=== PATIENT | male | born 1960 | race Caucasian/White ===

== ENCOUNTER 2020-01-12 15:00 | Outpatient (RCR) | payer OTHER, SELFPAY ==
--- NOTE | 2019-12-23 16:16 | PTOPEVAL ---
PHYSICAL THERAPY EVALUATION AND PLAN OF CARE 12-23-2019 The PT evaluation was completed for the diagnosis of back pain, OA. The plan of care is scheduled for 1-2 x/week for 3 weeks. Thank you for referring Ricky Muñoz to [facility]. Please review, sign, date and return this plan of care DEVYN. I agree with and certify that the following plan of care is medically necessary. Referring Physician Date Attending Provider: Jordon Wilkerson MD *PT Outpatient Evaluation Start: 12/23/19 15:10 Document 12/23/19 15:10 CHRIS (Rec: 12/23/19 16:16 CHRIS [id number]) Outpatient Past Medical History Past Medical History Source of Past Medical History Patient Neurological History Hx Neurological Disorders No Significant History Cardiovascular History Hx Cardiac Disorders No Significant History Respiratory History Hx Respiratory Disorders No Significant History Gastrointestinal History Hx Gastrointestinal Disorders No Significant History Genitourinary History Hx Genitourinary Disorders No Significant History Musculoskeletal History Hx Back Pain Yes Hx Joint Replacement Yes: THR R '14/ L '15; Hx Other Musculoskeletal Disorders Yes: active, previous sports, injuries to body:R hamstring injury/torn Hematological History Hx Hematological Disorders No Significant History Endocrine History Hx Endocrine Disorders No Significant History HEENT History Hx HEENT Disorders No Significant History Evaluation Information Problem Diagnosis low back pain, OA Onset few months ago Subjective Information no trauma or injury to back or Query Text:As Reported By Patient/ hips; had R hip injection Family few months ago for bursitis-- decreased pain; Diagnostic Tests X-Rays For This Problem Yes: lumbar OA, partial sacralization of L5 Previous Treatments Previous Treatments For This Problem no previous PT Prior Level of Function Activity Level (Last 3 Months) Occupation wood working; farm work Activity of Daily Living Ability Independent Indoor/Home Mobility Independent Community Mobility Independent Stairs Ability Independent Functional Cognition (Planning, Shopping Independent , Taking Medications) Cooking Yes Cleaning Yes Laundry Yes Shopping Yes Driving Yes Medications Home Meds (Include: OTC, RX, Vitamins, aspirin, naproxen, vitamin, Herbals, Dose, Route,and Frequency) omega 3 fish oil Query Text:Home Med Entries Will No Longer Recall From Past Visits. Home Meds Must Be Re-entered With Each Visit.
--- NOTE | 2019-12-25 10:02 | PCPTNOTE ---
received fax from Dr Wilkerson office--clarify use standard hip precautions for Ricky's therapy ; I called his home and talked with his , informed her of this and to NOT perform supine trunk rot stretch; She voiced understanding and would relay info to him.
--- NOTE | 2020-01-12 15:46 | PTOPEVAL ---
PHYSICAL THERAPY DISCHARGE 01-12-2020 Ricky has received 4 PT sessions, from December 22 to today, for the diagnosis of back pain. Compared to the initial evaluation, he has improved with: decreased pain rating; can transfer sit to stand without pain increase; self assessment with the Oswestry is 0% limitation; flexibility of R and L knee flexion/ant hip-quad length; trunk stability and posture stabilization with activity and he is independent with his home exercises--using an exercise ball and his weight equipment. The goals were achieved, except hamstring flexibility. Thank you for referring Ricky Muñoz to [facility]. Please review, sign, date and return this plan of care DEVYN. I agree with and certify that the following plan of care is medically necessary. Referring Physician Date Attending Provider: Jordon Wilkerson MD Document 01/12/20 15:05 CHRIS (Rec: 01/12/20 15:42 CHRIS [id number]) Assessment Status Discharge Evaluation Information Problem Subjective Information Ricky reports: doing exercises Query Text:As Reported By Patient/ at home, using ball and doing Family core exercises, using wt resisted exercises in standing at home; and ready to be finished with PT treatments; using good mechanics and stretching upright before start walking; self assessment Oswestry is 0% limitation Pain Assessment Timing of Pain Assessment Timing of Pain Assessment Assessment Pain Scale Pain Scale Used Numeric (1 - 10) Self Report Pain Assessment Bilateral Back Reported Pain Level 0 Pain Frequency Chronic Additional Pain Comments tight in R and L lumbar spine; some tightness with sit/stand but not pain Pain Score Pain Score 0: Self Report Lower Extremity Range of Motion General Lower Extremity Range of Motion Gross Lower Extremity Range of Motion supine SLR/hamstring length R Comments 60'/L65' prone knee flexion/ ant hip- quad length; R 120'/L 115'; Lower Extremity Muscle Strength Testing General Lower Extremity Strength Gross Lower Extremity Strength exercises on ball: knee ext, knee ext/arm lift alternate; abd curl ups, roll out, roll out leg lift; prone hip ext, alt arm/leg lift, B rows x 20 each; cues for trunk stability HEP: reviewed HEP, issued above ball exercises for HEP; Posture Posture Standing Position Posture Evaluation View Posterior Additional Posture Comments slight R pelv
== END 2020-01-13 12:19 | disposition home or self-care (01) ==
LOC: ANHPT 15:00
PROVIDERS: Visit Provider Orthopaedic Surgery
DX: M47.819 Spondylosis without myelopathy or radiculopathy, site unspecified (principal); M54.5 Low back pain
CPT/HCPCS: 97110; 97161

== ENCOUNTER 2020-07-13 01:22 | Outpatient (CLI) | payer OTHER, SELFPAY ==
[2020-07-13 19:19] LABS: SARS-CoV-2 RNA PCR Negative
== END 2020-07-13 01:23 | disposition home or self-care (01) ==
LOC: ANHCOVIDDT 01:22
PROVIDERS: Visit Provider Internal Medicine Cardiovascular Disease
DX: Z01.812 Encounter for preprocedural laboratory examination (principal); Z20.822 Contact with and (suspected) exposure to COVID-19
CPT/HCPCS: C9803; U0003; U0005

== ENCOUNTER 2020-07-16 01:40 | Day surgery (SDC) | payer OTHER, SELFPAY ==
[2020-07-15 14:37] VITALS: BMI 35.2
[2020-07-16] VITALS (8 sets, daily range): BP systolic 113–146; BP diastolic 88–107; PULSE 80–103; RESP 12–24; TEMP 36.4–36.6; O2SAT 96–100; BMI 35.6
[2020-07-16 07:44] LABS: Basophils Absolute Auto 0.1 K/mm3 (0.0-0.1); Basophils Percent Auto 0.7 % (0.2-1.2); Eosinophils Absolute Auto 0.2 K/mm3 (0-0.3); Eosinophils Percent Auto 2.9 % (0-4.4); Hematocrit 41.6 % (42.0-52.0); Hemoglobin 13.3 g/dL (14.0-18.0); Immature Granulocyte Absolute 0.02 K/mm3 (0.00-0.031); Immature Granulocyte Percent A 0.3 % (0-0.5); Lymphocytes Absolute Auto 1.31 K/mm3 (0.9-3.2); Lymphocytes Percent Auto 17.9 % (18.3-44.2); Mean Corpuscular Hemoglobin 26.5 pg (26-34); Mean Platelet Volume 9.3 fl (7.4-10.4); Monocytes Absolute Auto 0.5 K/mm3 (0.1-0.6); Monocytes Percent Auto 6.3 % (2.6-8.5); Neutrophils Absolute Auto 5.3 K/mm3 (1.3-6.7); Neutrophils Percent Auto 71.9 % (45.5-73.1); Platelet Count Result 323 k/mm3 (150-375); Red Blood Count 5.01 M/mm3 (4.6-6.20); Red Cell Distribution Width 15.9 % (11.5-14.5); White Blood Count 7.3 K/mm3 (4.5-10.0)
[2020-07-16 07:56] LABS: Anion Gap 5 mmol/L (8-16); Blood Urea Nitrogen 19 mg/dL (9-20); Calcium 8.7 mg/dL (8.4-10.2); Carbon Dioxide 29 mmol/L (22-30); Chloride 109 mmol/L (98-107); Estimated CRCL calculation 87 ml/min; Estimated Glomerular Filt Rate > 60; Glucose 111 mg/dL (75-110); Potassium 3.9 mmol/L (3.4-5.0); Sodium 143 mmol/L (137-145)
[2020-07-16 07:59] LABS: Prothrombin Time 13.2 Seconds (11.1-14.7)
--- NOTE | 2020-07-16 09:06 | WPDHPUPDATE1 ---
History and Physical Update Update Date/Time: 07/16/20 09:06 History and Physical has been reviewed, including an updated exam of the patient. There are NO changes in the patient's condition. Risks, benefits, and alternatives have been discussed and questions answered. Patient agrees to proceed with procedure.
--- NOTE | 2020-07-16 09:06 | WPDMODSED ---
Moderate Sedation Note-Pt Data Patient Data Diagnosis: New diagnosis cardiomyopathy, exertional chest pain shortness of breath Present Complaint: none Procedure to be performed/Plan: left heart catheterization with selective left and right coronary angiography with left ventriculography and hemodynamics Allergies Allergy/AdvReac Type Severity Reaction Status Date / Time No Known Allergies Allergy Unknown Verified 12/11/19 08:01 Home Medications Medication Instructions Recorded Confirmed Type zuyxnzckqklg-nrcqzdxr-dwdios tablet 1 tablet PO DAILY 09/30/19 07/16/20 History naproxen sodium 220 mg capsule 220 mg PO ONCE 09/30/19 07/16/20 History omega-3 fatty acids 500 mg PO DAILY 09/30/19 07/16/20 History lisinopril 10 mg PO DAILY 07/15/20 07/16/20 History Current Medications: Active Medications Sodium Chloride (Normal Saline Iv) 500 mls @ 100 mls/hr IV CONT .Q5H LAYNE Sedation/Anesthesia: No previous sedation/anesthesia problems (including family history). 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[employer] Gender identity (if verbalized by the patient): Male Spiritual care concerns: No Mod Sed Physical Exam Physical Exam Pre Procedural Exam: Normal: Appearance, Eyes, Ears, Nose, Neck ( supple, normal range of motion), Throat ( posterior hypopharynx clear, nonerythematous), Airway ( normal anatomy, no obstruction), Lungs ( clear to auscultation bilaterally), Heart Size, Heart Rate, Heart Rhythm, Neuro Exam, Liver, Kidneys and Skin and Variation: Abdomen ( obese) and Extremities (1+ LE edema bilaterally) Hours since solid foods: 12 Hours since liquid intake: 12 Internal Medicine - PN: Obj Da Vital Signs Vital Signs: Vital Signs - 24 hr 07/16/20 07:37 Temperature 36.6 C Pulse Rate 103 H Respiratory Rate 24 H Blood Pressure 146/90 H Pulse Oximetry 97 Meds/Results Medications: Active Medications Generic Name Dose Route Start Last Admin Trade Name Justinoq PRN Reason Stop Dose Admin Sodium Chloride 500 mls @ 100 mls/hr 07/16/20 07:15 Normal Saline Iv IV CONT .Q5H LAYNE Labs CBC & Chem 7: 07/16/20 07:38 07/16/20 07:38 Labs: Laboratory Results - last 24 hr 07/16/20 07/16/20 07/16/20 07:38 07:38 07:38 WBC 7.3 RBC 5.01 Hgb 13.3 L Hct 41.6 L MCV 83.0 MCH 26.5 MCHC 32.0 RDW 15.9 H Plt Count 323 MPV 9.3 Immature Gran % (Auto) 0.3 Neut % (Auto) 71.9 Lymph % (Auto) 17.9 L Eagle % (Auto) 6.3 Eos % (Auto) 2.9 Baso % (Auto) 0.7 Lymph # (Auto) 1.31 Eagle # (Auto) 0.5 Eos # (Auto) 0.2 Baso # (Auto) 0.1 Abs Immat Gran (auto) 0.02 Absolute Neuts (auto) 5.3 Absolute Nucleated RBC 0.0 Nucleated RBC % 0.0 PT 13.2 INR 1.0 Sodium 143 Potassium 3.9 Chloride 109 H Carbon Dioxide 29 Anion Gap 5 L BUN 19 Creatinine 1.00 Estim Creat Clear Calc 87 Estimated GFR > 60 Glucose 111 H Calcium 8.7 ASA Classification/Sedation ASA Classification/Sedation ASA Class: III Emergent: No Risks: Risks, benefits and alternatives explained and patient/famil
--- NOTE | 2020-07-16 10:27 | PM.PROC ---
Procedure Note - Detailed Date of procedure: 07/16/20 Pre-op diagnosis: SOB,New Left Bundle Branch Block,Cardiomyopathy Post-op diagnosis: same ( Nonischemic cardiomyopathy, nonobstructive CAD) Procedure performed: PROCEDURES PERFORMED: 1. Left heart catheterization 2. Selective left and right coronary angiography 3. Left ventriculography and hemodynamics 4. Moderate/conscious sedation administration 5. Selective right femoral angiography 6. 6 Finnish Angio-Seal vascular closure device deployment in the right common femoral artery Description of procedure: BRIEF HISTORY OF PRESENT ILLNESS: Patient is a pleasant 60-year-old male with a history of hypertension and new recent development of exertional chest discomfort and shortness of breath found have a new left bundle-branch block on EKG. He underwent noninvasive evaluation with a 2D echocardiogram which revealed severe LV dysfunction EF 23% subsequently referred for left heart catheterization for delineation of his coronary anatomy. CATHETERS UTILIZED: Left coronary system- 5 Finnish JL4 catheter Right coronary system- 5 Finnish JR4 catheter Left ventriculography and hemodynamics- 5 Finnish angled pigtail catheter PROCEDURE IN DETAIL: After verbal and written informed consent was obtained the patient, risks, benefits, and alternatives explained in detail the patient agreed to proceed with the plan of care as outlined above. The patient was subsequently brought to the cardiac catheterization lab, placed on the cardiac catheterization table, and prepped and draped in the usual sterile fashion. Utilizing approximately 19cc of 1% subcutaneous Lidocaine, the right groin was then locally anesthetized. Of note, there was difficulty in identifying his femoral pulse post lidocaine administration and obscured landmarks due to his bod habitus. Ultrasound guidance was utilized in locating the femoral artery. Using a long 9cm access needle access obtained and a 23 cm 5Fr access sheath was placed in the right common femoral artery without complications. Through this access, coronary angiography was subsequently obtained in multiple standard re-projections. Following this, a 5 Finnish angled pigtail catheter was advanced retrograde across aortic valve into the cavity of the left ventricle. Left ventriculography was deferred due to high LVEDP and low EF performed, however, hemodynamics were obtained and pullback across aortic valve was subsequently recorded. The vascular access sheath and angiographic catheters were flushed before and after catheter exchanges. At the conclusion of the diagnostic portion of the procedure, all angiographic guidewires and catheters were removed. selective right femoral angiography was performed which revealed the arteriotomy site to be proximal to the bifurcation in the right common femoral artery suitable for 6 Finnish Angio-Seal vascular closure device deployment. Subsequently, over the wire the 5 Finnish arterial vascular access sheath was removed and the 6Fr Angioseal vascular closure device was placed easily and without complication. Excellent hemostasis was achieved and 5 minutes manual compression per protocol was applied. There no complications noted at the conclusion of the diagnostic portion of the study. MODERATE SEDATION/ANESTHESIA ADMINISTRATION: Patient reports no prior problems with sedation/anesthesia. Please see pre-sedation noted for physical examination documentation. Sedation start time was 0909 and end time was 1007 for a total intra-service/procedure face-face time of 58 minutes. A total of 2 mg intravenous Versed and a total of 75 mcg intravenous Fentanyl in multiple divided doses was administered for moderate sedation. Moderate sedation was administered by qualified/certified observer Charlotte Magdaleno RN under my supervision with intra-procedure [id number] observation and management throughout the entirety of the procedure. There were no other issues or compl
--- NOTE | 2020-07-16 13:30 | SUR.PHASEII ---
All D/C instructions reviewed with patient. All questions answered at this time.
== END 2020-07-16 13:46 | disposition home or self-care (01) ==
PROVIDERS: Visit Provider Internal Medicine Cardiovascular Disease
PROC: 4A023N7 Measurement of Cardiac Sampling and Pressure, Left Heart, Percutaneous Approach (ICD-10-PCS; CPT 93452; principal; 2020-07-16 08:30)
DX: I42.8 Other cardiomyopathies (principal); I25.10 Atherosclerotic heart disease of native coronary artery without angina pectoris; I44.7 Left bundle-branch block, unspecified; R06.02 Shortness of breath; I10 Essential (primary) hypertension
CPT/HCPCS: 36415; 80048; 85025; 85610; 93458; C1760; C1887; C1894; C9803; G0269; J1644; J2250; J3010; J7040; U0003; U0005

== ENCOUNTER 2021-03-24 08:49 | Outpatient (CLI) | payer OTHER, SELFPAY ==
[2021-03-24 16:37] LABS: SARS-CoV-2 RNA PCR Negative (Negative)
== END 2021-03-24 08:50 | disposition home or self-care (01) ==
PROVIDERS: PCP Nurse Practitioner Adult Health; Visit Provider Internal Medicine Cardiovascular Disease
DX: Z01.810 Encounter for preprocedural cardiovascular examination (principal); Z20.822 Contact with and (suspected) exposure to COVID-19
CPT/HCPCS: C9803; U0003; U0005

== ENCOUNTER 2022-06-28 09:38 | Emergency (ER) | payer OTHER, SELFPAY ==
[2022-06-28 09:43] VITALS: BP 154/92; PULSE 69; RESP 15; TEMP 36.2; O2SAT 97
--- NOTE | 2022-06-28 11:31 | ED.GENADULT ---
HPI - General Adult General Chief complaint: Back Pain/Injury Stated complaint: back pain Time Seen by Provider: 06/28/22 10:51 Source: patient Mode of arrival: other Limitations: no limitations History of Present Illness HPI narrative: Ricky Muñoz is a 62 y/o male who presents today with reports of being at work and lifted timber in to a truck and felt a pull in his right lower back area. He reports he has pulled his back like this before. Denies any other symptoms with the right lower back pain, reports moving/twisting makes pain worse, he is able to ambulate without difficulty and he is able to sit a certain way and has relief of pain. Related Data Home Medications Medication Instructions Recorded Confirmed tuiqekepgdvr-ecuivxvs-hbhqpx tablet 1 tablet PO DAILY 09/30/19 07/16/20 lisinopril 10 mg tablet 10 mg PO DAILY 07/15/20 07/16/20 Allergies Allergy/AdvReac Type Severity Reaction Status Date / Time No Known Allergies Allergy Unknown Verified 06/28/22 11:02 Review of Systems Review of Systems: CONSTITUTIONAL: Denies fever, chills, or sweats. EYES: Denies visual changes, redness, or discharge. ENT: Denies rhinorrhea, congestion, sore throat, or otalgia. CARDIOVASCULAR: Denies chest pain, palpitations, or edema. RESPIRATORY: Denies cough or dyspnea. GASTROINTESTINAL: Denies abdominal pain, nausea, vomiting, or diarrhea. GENITOURINARY: Denies dysuria or hematuria. SKIN: Denies rash or itching. MUSCULOSKELETAL: Reports right lower back pain that started after lifting a piece of timber NEUROLOGIC: Denies headache, numbness, dizziness, or weakness. PSYCHIATRIC: Denies anxiety or depression. 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 HEAD: Normocephalic, atraumatic. EYES: PERRLA and EOMI. ENT: Nares clear, no rhinorrhea or epistaxis. Mucous membranes moist. Oropharynx without tonsillar hypertrophy exudate or other lesions. NECK: Supple. No adenopathy or masses. No carotid bruits or JVD CHEST: Clear to auscultation. No respiratory distress. No wheezes rales or rhonchi HEART: Regular rate and rhythm. No murmur heard. Normal peripheral pulses. ABDOMEN: Soft, nontender, nondistended, normal active bowel sounds. EXTREMITIES: Normal range of motion. No edema. SKIN: Warm, dry, no rash. NEURO: No focal deficits. Alert and oriented x3. PSYCH: Normal mood and affect. Course Vital Signs Vital signs: Vital Signs Temperature 36.2 C L 06/28/22 09:43 Pulse Rate 69 06/28/22 09:43 Respiratory Rate 15 06/28/22 09:43 Blood Pressure 154/92 H 06/28/22 09:43 Pulse Oximetry 97 06/28/22 09:43 Oxygen Delivery Room Air 06/28/22 09:43 Temperature 36.2 C L 06/28/22 09:43 Pulse Rate 69 06/28/22 09:43 Respiratory Rate 15 06/28/22 09:43 Blood Pressure 154/92 H 06/28/22 09:43 Pulse Oximetry 97 06/28/22 09:43 Oxygen Delivery Room Air 06/28/22 09:43 Medical Decision Making MDM Narrative Medical decision making narrative: Vijay
[2022-06-28] MEDS: ORPHENADRINE CITRATE 100 MG TABLET.ER PO (11:47)
[2022-06-28] MEDS: NAPROXEN 500 MG TABLET PO (11:47)
== END 2022-06-28 12:05 | disposition home or self-care (01) ==
PROVIDERS: Emergency Provider Nurse Practitioner Family
DX: S39.012A Strain of muscle, fascia and tendon of lower back, initial encounter (principal); I10 Essential (primary) hypertension; X50.0XXA Overexertion from strenuous movement or load, initial encounter
CPT/HCPCS: 99283; A9270

== ENCOUNTER 2024-01-23 14:56 | Outpatient (CLI) | payer OTHER, SELFPAY ==
--- NOTE | ~2024-01-23 | US_ITS ---
US scrotum doppler INDICATION: Testicular enlargement TECHNIQUE: Testicular sonogram utilizing grayscale and color Doppler FINDINGS: The testes are normal in size and appearance. No focal lesions are seen. The right testes measures 4.6 x 2.9 x 2.5 cm centimeters, and the left testis measures 3.8 x 3.6 x 2.8 cm cm. There is normal vascular flow to both testes. There are multiple bilateral epididymal cysts, largest on the left measuring 4.5 cm. There is a right hydrocele. IMPRESSION: 1. Large bilateral epididymal cysts, largest on the left measuring 4.5 cm. 2: Right varicocele. Reviewed, dictated and finalized at location B.
== END 2024-01-23 14:57 ==
PROVIDERS: Visit Provider Family Medicine
DX: N50.3 Cyst of epididymis (principal); I86.1 Scrotal varices; N50.89 Other specified disorders of the male genital organs
CPT/HCPCS: 76870; 93976

== ENCOUNTER 2024-11-25 02:00 | Day surgery (SDC) | payer OTHER, SELFPAY ==
[2024-11-19 12:14] VITALS: BMI 30.2
--- OUTSIDE RECORDS SUMMARY | 2024-11-25 02:03 | XMS_ITS | Referral Summary ---
Author Organization [facility] [address] [place] [address] [address] [place] [address] Care Team Providers Care Bdr Name Role Phone Jenny Murphy NP Primary Care Provider [phone] Encounters Date Type Department Care Team Description 11/19/2024 Telephone [facility] [address] [place] [address] [address] [place] [phone] Jay Brar MD 10/28/2024 12:45 PM CDT Ancillary Procedure [facility] [address] [facility] [address] [address] Biventricular ICD (implantable cardioverter-defibrilla tor) in place (Primary Dx); NICM (nonischemic cardiomyopathy) (HCC) 10/26/2024 Results Follow-Up [facility] [address] [place] [address] [address] [place] [phone] Jay Brar MD Abdominal Aortic Aneurysm Screening 10/22/2024 3:53 PM CDT - 10/22/2024 11:59 PM CDT Hospital Encounter [facility] [address] [place] [address] Family history of aortic aneurysm Discharge Disposition: Discharge to home or self care 09/30/2024 Telephone [facility] [address] [place] [address] [address] [place] [address] Jay Brar MD 09/30/2024 3:15 PM CDT Office Visit [facility] [address] [place] [address] Jay Brar MD Coronary artery disease involving [place] coronary artery of [place] heart without angina pectoris (Primary Dx); Heart failure with improved ejection fraction (HFimpEF) (HCC); LBBB (left bundle branch block); Biventricular ICD (implantable cardioverter-defibrilla tor) in place; Benign hypertension; Mixed hyperlipidemia; PSVT (paroxysmal supraventricular tachycardia); Family history of aortic aneurysm from Last 3 Months Allergies No known active allergies Medications multivitamin tablet tablet take 1 tablet by oral route every day with food 0 0 6 Active aspirin 81 mg enteric coated tablet Take 1 tablet (81 mg total) by mouth daily Active sacubitriL-vals jennifer (Entresto) 97-103 mg tablet Take 1 tablet by mouth 2 (two) times a day 180 tablet 3 5 Active atorvastatin (LIPITOR) 40 mg tablet Take 1 tablet (40 mg total) by mouth daily 90 tablet 1 5 Active metoprolol XL (TOPROL-XL) 50 mg extended release tablet Take 1.5 tablets (75 mg total) by mouth daily 135 tablet 1 5 05/18/20 25 Active atorvastatin (LIPITOR) 40 mg tablet Take 1 tablet (40 mg total) by mouth daily 90 tablet 5 11/20/19 25 Discontinu ed(Reorder ) metoprolol XL (TOPROL-XL) 50 mg extended release tablet Take 1.5 tablets (75 mg total) by mouth daily 135 tablet 5 11/20/19 25 Discontinu ed(Reorder ) Active Problems Problem Noted Date Diagnosed Date Encounter for medical examination to establish c are 06/17/2024 Assessment & Plan (06/17/2024 4:00 PM ALUMNI COORDINATOR): I have reviewed patient's history, family history, current med list and plan of care. Discussed relevant follow up testing and specialty follow-up needed. Referrals placed as needed. Referral placed for colonoscopy. PSVT (paroxysmal supraventricular tachycardia) 1 Assessment & Plan (06/17/2024 3:58 PM ALUMNI COORDINATOR): This was found on device interrogation. It was recommended that he increase the metoprolol to 75 mg daily. He states he has not started the new dose yet as he is not having any symptoms. He continues to exercise regularly and states he feels well. H/O cardiomyopathy 07/10/2022 Mixed hyperlipidemia 07/10/2022 Assessment & Plan (06/17/2024 3:59 PM ALUMNI COORDINATOR): Last LDL was 55. Continues on atorvastatin 40 mg once daily. Has been managed by Cardiology Biventricular ICD (implantab le cardioverter-defibrillator) in place 06/29/2021 Chronic heart failure with p reserved ejection fraction (CMS/HCC) 12/08/2020 Coronary artery disease invo lving [place] coronary artery of [place] heart without angina pectoris 07/30/2020 LBBB (left bundle branch block) 07/08/2020 Heart failure with improved ejection fraction (H FimpEF) 11/18/2019 Assessment & Plan (06/17/2024 3:57 PM ALUMNI COORDINATOR): Patient has implantable defibrillator. He continues to follow with Cardiology. Class 1 obesity due to exces s calories with serious comorbidity and body mass index (BMI) of 32.0 to 32.9 in adult 05/02/2016 Overview (09/15/2016): Obesity (BMI 30-39.9) Assessment & Plan (06/17/2024 3:56 PM ALUMNI COORDINATOR): BMI Follow-up includes: nutrition counseling. Family history of aortic aneurysm 05/02/2016 Overview (09/15/2016): Family history of abdominal aortic aneurysm (AAA) Benign hypertension 05/02/2016 Overview (09/15/2016): HTN (hypertension), benign Assessment & Plan (06/17/2024 3:57 PM ALUMNI COORDINATOR): Blood pressure well controlled on current medications. This include furosemide metoprolol and Entresto which are prescribed per Cardiology. Labs reviewed from last January and are stable. Resolved Problems Problem Noted Date Diagnosed Date Resolved Date Stage 2 chronic kidney disease 01/11/2024 06/17/2024 Dilated cardiomyopathy 07/30/202006/17 Assessment & Plan (12/08/2020 11:27 AM CDT): Severe nonischemic cardiomyopathy with associated new York Heart Association class 2 symptoms. LV ejection fraction was 23-25% on his last echocardiogram. He has a left bundle branch block on his resting ECG. I recommended that he consider placement of a defibrillator for the primary prevention of sudden cardiac arrest. Because of his IVCD, he would likely benefit from biventricular pacing, and I described concurrent placement of an LV pacing lead. I explained the risks of device placement, including device infection, hematoma, vascular injury, pneumothorax, myocardial perforation, lead dislodgement, and . I estimated the risks of these to be low. We also discussed the specific benefits of device placement. If the patient would like to proceed, my office will make the appropriate arrangements. From: Adonis Velazquez AE, JP, Ellenbogen KA, Pedro Luis OCONNOR III, Jaz Yates RA, Mahesh SILVER, Get Tavarez, Viviana GREGORY, Placido GALVEZ, Nnamdi JIMENES, Jose Cruz HANEY, Celeste JAIN, Rosy ECHOLS, Marcelo GANDARA, Mundo MEDEL, Amauri BERMAN. ACC/AHA/HRS 2008 guidelines for device-based therapy of cardiac rhythm abnormalities: a report of the [place] College of Cardiology/Lao Heart Association Task Force on Practice Guidelines (Writing Committee to Revise the ACC/AHA/NASPE 2002 Guideline Update for Implantation of Cardiac Pacemakers and Antiarrhythmia Devices). J Am Abrahan Cardiol 2008;51:e1- 62. Class I: ICD therapy is indicated in patients with nonischemic DCM who have an LVEF less than or equal to 35% and who are in NYHA functional Class II or III. (Level of Evidence: B) From: Adonis Velazquez AE, JP, Ellenbogen KA, Estes NAM III, Jaz Yates RA, Mahesh SILVER, Get Tavarez, Viviana GREGORY, Placido GALVEZ, Nnamdi JIMENES, Jose Cruz HANEY, Celeste RL, Rosy ECHOLS, Marcelo GANDARA, Mundo MEDELAmauri 2012 ACCF/AHA/HRS focused update incorporated into the ACCF/AHA/HRS 2008 guidelines for device-based therapy of cardiac rhythm abnormalities: a report of the [place] College of Cardiology Foundation/La[place] Heart Association Task Force on Practice Guidelines and the Heart Rhythm Society. J Am Abrahan Cardiol 2013;61:e6-75. Class I: SEAMLESS TUBE MILL OPERATOR is indicated for patients who have LVEF less than or equal to 35%, sinus rhythm, LBBB with a QRS duration greater than or equal to 150 ms, and NYHA class II, (546,547) III, or ambulatory IV (542-545); symptoms on GDMT. (Level of Evidence: A for NYHA class III/IV; Level of Evidence: B for NYHA class II) Exertional chest pain 07/08/20202024 HAWKINS (dyspnea on exertion) 07/08/2020 PVC's (premature ventricular contractions) 07/08/2020 06/17/2024 Abnormal electrocardiography 05/02/2016 06/17/2024 Overview (09/15/2016): Abnormal ECG Preoperative state 05/02/2016 Overview (09/15/2016): Preoperative cardiovascular examination Arthralgia of hip 05/02/2016 06/17/2024 Overview (09/15/2016): Hip pain, bilateral Immunizations Immunization Administration Dates Next Due Influenza, Quadrivalent, Spl it, Preservative Free, Intramuscular 08/19/2016 [facility] SARS-CoV-2 Monovalent Vaccination (12+ Yrs) PURPLE 11/27/2020,11/06/2020 Social History Tobacco Use Types Packs/Day Years Used Date Smoking Tobacco: Never Smokeless Tobacco: Never Tobacco Cessation:Counseling Given: Not Answered Alcohol Use Standard Drinks/Week Comments No 0 (1 standard drink = 0.6 oz pur e alcohol) AUDIT-C Answer Date Recorded Q1: How often do you have a drink containing alc ohol? 2-4 times a month 03/28/2021 Q2: How many drinks containi ng alcohol do you have on a typical day when you are drinking? 1 or 2 03/28/2021 Q3: How often do you have si x or more drinks on one occasion? Never 03/28/2021 PHQ-2 Answer Date Recorded PHQ-2 Total Score (If total score is 3 or more points, staff should administer the PHQ-9) 0 06/17/2024 Sex and Gender Information Value Date Recorded Sex Assigned at Not on file Legal Sex Male 4:18 AM ALUMNI COORDINATOR Gender Identity Male 10/18/2020 4:43 PM CDT Sexual Orientation Straight 10/18/2020 4: 43 PM CDT Last Filed Vital Signs Vital Sign Reading Time Taken Comments Blood Pressure 104/60 09/30/2024 4:02 PM CDT Pulse 72 09/30/2024 4:02 PM CDT Temperature 36.9 C (98.5 F) 06/17/2024 3:23 PM ALUMNI COORDINATOR Respiratory Rate 18 06/17/2024 3:23 PM ALUMNI COORDINATOR Oxygen Saturation 97% 09/30/2024 4:02 PM CDT Inhaled Oxygen Concentration - - Weight 100.7 kg (222 lb) 09/30/2024 4:02 PM CDT Height 177.8 cm (5' 10) 09/30/2024 4:02 PM CDT Body Mass Index 31.85 09/30/2024 4:02 PM CDT Plan of Treatment Not on file Medical Devices Implanted Type Area Convention Worker Device Identifier Shelf Expiration Date Model / Serial / Lot Medtronic Inc [id number] Cardiac [place] Hf 2 Chamber Df4 Inline Cnctr Is4 - [id number] - [id number] Implanted:Qty: 1 on 03/28/2021 by Fareed Downs MD at [facility] ICD Medtronic Inc [id number] 07/25/2022 DTP [id number] / [id number] / [id number] Medtronic Cardiac Rhythm Mgmt [id number] Sprint Quattro Secure S 55cm Df-4 Tripolar Screw Defibrillator - [id number] - [id number] Implanted:Qty: 1 on 03/28/2021 by Fareed Downs MD at [facility] Lead Medtronic Inc [id number] 01/13/2023 [id number] / [id number] / [id number] Medtronic Inc [id number] Lead Attain Stability Quad Mri Surescan Lv 88mm - [id number] - [id number] Implanted:Qty: 1 on 03/28/2021 by Fareed Downs MD at [facility] Lead Medtronic Inc [id number] 12/08/2022 [id number] / [id number] / [id number] Medtronic Inc Capsurefix Novus 6.2fr 2mm 52cm Bipolar Screw In Implantable Latex Free 5076-52 - [id number] - [id number] Implanted:Qty: 1 on 10/24/2021 at [facility] Lead Medtronic Inc [id number] 08/11/2023 507 6-52 / [id number] / [id number] Bilateral Hip Replacements Hip Explanted Type Area Convention Worker Device Identifier Shelf Expiration Date Model / Serial / Lot Medtronic Cardiac Rhythm Mgmt 5076-45 Capsurefix Novus 6.2fr 2mm 45cm Bipolar Screw In Implantable - [id number] - [id number] Implanted:Qty: 1 on 03/28/2021 by Fareed Downs MD at [facility] Explanted:Qty: 1 on 10/24/2021 at [facility] Lead Medtronic Inc [id number] 01/20/2023 507 6-45 / [id number] / [id number] Procedures Procedure Name Priority Date/Time Associated Diagnosis Comments DEVICE CHECK - REMOTE Routine 10/28/2024 9:34 AM CDT NICM (nonischemic cardiomyopathy) (HCC) US ABDOMINAL AORTIC ANEURYSM SCREENING Schedule Routine, Read Routine (OP Routine) 10/22/2024 4:37 PM CDT Family history of aortic aneurysm POCT LIPID PANEL Routine 09/30/2024 4:03 PM CDT Coronary artery disease involving [place] coronary artery of [place] heart without angina pectoris Mixed hyperlipidemia from Last 3 Months Results * DEVICE CHECK - REMOTE (10/28/2024 9:34 AM CDT) Anatomical Region Laterality Modality Other Narrative 11/09/2024 12:12 PM CDT Table formatting from the original result was not included. BiV ICD CHECK (REMOTE) Patient ID: Ricky Muñoz is a 64 y.o. male. This patient received a Medtronic BiV ICD. They had a routine remote transmission on 10/28/2024 Device implant indications: Nonischemic dilated cardiomyopathy Interrogation of the patient's device demonstrates the following: Presenting EGM: A paced Bi V paced @ 60 bpm Original Device Settings Right Atrium Right Ventricle Left Ventricle Sensitivity (mV) 0.3 mV 0.3 mV N/A mV Pacing Outputs 1.5 V @ 0.4 ms 2.0 V @ 0.4 ms 1.5 V @ 0.4 ms Testing Measurements Right Atrium Right Ventricle Left Ventricle Sensitivity (mV) 3.1 mV 11.3 mV Not done mV Impedence (Ohms) 323 ohms 361 ohms 513 ohms Pace Threshold 0.5 V @ 0.4 ms 0.75 V @ 0.4 ms 0.875 V @ 0.4 ms Pacing % 39.5 % 97.5 % 97.5 % HV Lead Impedance N/A 71 ohms N/A Battery Status: 7.5 years to [facility], charge time 10.5 seconds. Episodes last 90 days/Comments: AF [place] 0 %,longest duration 0. There were 4 episodes of SVT the longest lasting 3-1/2 minutes rates ranged from 167 per to 200 beats per minute. There were no treated ventricular arrhythmias noted on today's remote interrogation. NORMAL DEVICE FUNCTION PROGRAMMED MEDICATIONS: Anti-coagulant(s): Aspirin 81 mg daily Anti-arrhythmic(s): Toprol-XL 75 mg daily PLAN: 1) Medtronic BiV ICD evaluation 2) Medtronic remote transmission scheduled in 3 months. 3) Programming appropriate for device settings Arron Reed RN us Fareed Downs MD [facility] PRO CEDURES Final Result * US Abdominal Aortic Aneurysm Screening (10/22/2024 4:37 PM CDT) Anatomical Region Laterality Modality Abdomen Ultrasound 10/25/2024 7:21 AM CDT Narrative 10/25/2024 7:21 AM CDT EXAM DESCRIPTION: US ABDOMINAL AORTIC ANEURYSM SCREENING REASON FOR STUDY: family history of aortic aneurysm TECHNIQUE: Grayscale images acquired of the aorta and stored on PACS. Selected color Doppler and spectral images recorded. COMPARISON: None. FINDINGS: AORTIC CALIBER MAXIMAL PROXIMAL: 2.9 x 2.7 cm. MID: 2.5 x 2.4 cm. DISTAL: 2.1 x 2.0 cm. ILIAC DIAMETER RIGHT: 1.3 x 1.5 cm. LEFT: 1.5 x 1.4 cm. OTHER: No other significant finding. IMPRESSION: No abdominal aortic aneurysm. REFERENCE: Please see below follow up recommendations for abdominal aortic aneurysm surveillance per Society for Vascular Surgery Guidelines: < 2.6 cm No follow up or future screenings necessary 2.62.9 cm Recommended ultrasound follow up every 5 years 3.0-3.4 cm Recommended ultrasound follow up every 3 years 3.5-3.9 cm Recommended ultrasound follow up every 12 months 4.0-4.9 cm Recommended ultrasound follow up every 12 months, vascular surgery consult 5.0-5.4 cm Recommended ultrasound follow up every 6 months, vascular surgery consult >= 5.5 cm Referral to vascular surgeon Based upon Society for Vascular Surgery Guidelines: J Vasc Surgery 2008 50: s2-s49; updated Jun 2017 J Vasc Surgery 67:2-77 THIS IS AN ELECTRONICALLY VERIFIED FINAL REPORT 10/25/2024 7:21 AM - Electronically signed by Colton Gonzalez M.D. CH: Report ID: [id number] Reading Location: [id number] Procedure Note Colton Gonzalez Jr., MD - 10/25/2024 EXAM DESCRIPTION: US ABDOMINAL AORTIC ANEURYSM SCREENING REASON FOR STUDY: family history of aortic aneurysm TECHNIQUE: Grayscale images acquired of the aorta and stored on PACS.Selected color Doppler and spectral images recorded. COMPARISON: None. FINDINGS: AORTIC CALIBER MAXIMAL PROXIMAL: 2.9 x 2.7 cm. MID: 2.5 x 2.4 cm. DISTAL: 2.1 x 2.0 cm. ILIAC DIAMETER RIGHT: 1.3 x 1.5 cm. LEFT: 1.5 x 1.4 cm. OTHER: No other significant finding. IMPRESSION: No abdominal aortic aneurysm. REFERENCE: Please see below follow up recommendations for abdominal aortic aneurysm surveillance per Society for Vascular Surgery Guidelines: < 2.6 cm No follow up or future screenings necessary 2.62.9 cm Recommended ultrasound follow up every 5 years 3.0-3.4 cm Recommended ultrasound follow up every 3 years 3.5-3.9 cm Recommended ultrasound follow up every 12 months 4.0-4.9 cm Recommended ultrasound follow up every 12 months, vascularsurgery consult 5.0-5.4 cm Recommended ultrasound follow up every 6 months, vascularsurgery consult >= 5.5 cm Referral to vascular surgeon Based upon Society for Vascular Surgery Guidelines: J Vasc Surgery 2009Oct 50: s2-s49; updated Jun 2017 J Vasc Surgery 67:2-77 THIS IS AN ELECTRONICALLY VERIFIED FINAL REPORT 10/25/2024 7:21 AM - Electronically signed by Colton Gonzalez M.D. CH: LUCIA Report ID: [id number] Reading Location: [place] [address] Jay Brar MD IMG US PROCEDURES Final R esult * POCT lipid panel (09/30/2024 4:03 PM CDT) Cholesterol, POC 143 mg/dL HDL, POC 69 mg/dL Triglycerides, POC 91 mg/dL LDL Cholesterol POC 56 mg/dL Chol/HDL Ratio, POC 0.8 Non-HDL Cholesterol, POC 74 mg/dL Cholesterol Total, POC 143 mg/dL Capillary blood 09/30/2024 4 :03 PM CDT Jay Brar MD POINT OF CARE TEST ORDERA BLES Final Result from Last 3 Months Insurance [facility] Care Teams Bdr Relationship Specialty Start Date End Date Jenny Murphy NP [address] [place] [address] PCP - General Family Medicine 06/17/24
--- OUTSIDE RECORDS SUMMARY | 2024-11-25 02:03 | XMS_ITS | Encounter Summary ---
Author Organization [facility] Healthcare Address [address] [place] [address] Care Team Providers Care Seal Mixer Name Role Phone Jenny Murphy NP Primary Care Provider [phone] Encounter Details Date Type Department Care Team (Late st Contact Info) Description 10/26/2024 Results Follow-Up [facility] Cardiology [address] [place] [address] Jay Brar MD [address] [facility] [address] [facility] [address] [place] [address] Abdominal Aortic Aneurysm Screening Social History Tobacco Use Types Packs/Day Years Used Date Smoking Tobacco: Never Smokeless Tobacco: Never Alcohol Use Standard Drinks/Week Comments No 0 [...] on file 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
--- OUTSIDE RECORDS SUMMARY | 2024-11-25 02:03 | XMS_ITS | Clinical Summary ---
Author Organization [facility] [address] Address [address] [place] [address] Care Team Providers Care Pest Controller Assistant Name Role Phone Jenny Murphy NP Primary Care Provider [phone] Allergies No known active allergies Medications multivitamin [...] 06/17/2024 Assessment & Plan (06/17/2024 4:00 PM ETHICS INSTRUCTOR): I have reviewed patient's history, family history, current med list and plan of care. Discussed relevant follow up testing and specialty follow-up needed. Referrals placed as needed. Referral placed for colonoscopy. PSVT (paroxysmal supraventricular tachycardia) 1 Assessment & Plan (06/17/2024 3:58 PM ETHICS INSTRUCTOR): This was found on device interrogation. It was recommended that he increase the metoprolol to 75 mg daily. He states he has not started the new dose yet as he is not having any symptoms. He continues to exercise regularly and states he feels well. H/O cardiomyopathy 07/10/2022 Mixed hyperlipidemia 07/10/2022 Assessment & Plan (06/17/2024 3:59 PM ETHICS INSTRUCTOR): Last LDL was 55. Continues on atorvastatin 40 mg once daily. Has been managed by Cardiology Biventricular ICD (implantab le cardioverter-defibrillator) in place 06/29/2021 Chronic heart failure with p reserved ejection fraction (CMS/HCC) 12/08/2020 Coronary artery disease invo lving peoria coronary artery of peoria heart without angina pectoris 07/30/2020 LBBB (left bundle branch block) 07/08/2020 Heart failure with improved ejection fraction (H FimpEF) 11/18/2019 Assessment & Plan (06/17/2024 3:57 PM ETHICS INSTRUCTOR): Patient has implantable defibrillator. He continues to follow with Cardiology. Class 1 obesity due to exces s calories with serious comorbidity and body mass index (BMI) of 32.0 to 32.9 in adult 05/02/2016 Overview (09/15/2016): Obesity (BMI 30-39.9) Assessment & Plan (06/17/2024 3:56 PM ETHICS INSTRUCTOR): BMI Follow-up includes: nutrition counseling. Family history of aortic aneurysm 05/02/2016 Overview (09/15/2016): Family history of abdominal aortic aneurysm (AAA) Benign hypertension 05/02/2016 Overview (09/15/2016): HTN (hypertension), benign Assessment & Plan (06/17/2024 3:57 PM ETHICS INSTRUCTOR): Blood pressure well controlled on current medications. [...] office will make the appropriate arrangements. From: Caroline AE, Adonis BOBBY, Herrera KA, Pedro Luis OCONNOR III, Trudy RA, Jaz LS, Mahesh AM, Get G, Viviana SC, Placido DL, Nnamdi JIMENES, Jose Cruz LK, Celeste RL, Rosy MH, Marcelo MJ, Mundo LW, Amauri BERMAN. ACC/AHA/HRS 2008 guidelines for device-based therapy of cardiac rhythm abnormalities: a report of the [place] College [employer]/[place] Heart Association Task Force on Practice Guidelines [...] or III. (Level of Evidence: B) From: Caroline AE, Adonis BOBBY, Herrera KA, Pedro Luis OCONNOR III, Trudy RA, Jaz LS, Mahesh AM, Get G, Viviana SC, Placido DL, Nnamdi MA, Jose Cruz LK, Celeste RL, Rosy MH, Marcelo MJ, Mundo LW, Amauri BERMAN 2011 ACCF/AHA/HRS focused update incorporated into the ACCF/AHA/HRS 2008 guidelines for device-based therapy of cardiac rhythm abnormalities: a report of the [place] [employer] Foundation/[place] [employer] Association Task Force on Practice Guidelines and the Heart Rhythm Society. J Am Abrahan Cardiol 2013;61:e6-75. Class I: MULTIPLE DRILL OPERATOR is indicated for patients who have [...] 05/02/2016 06/17/2024 Overview (09/15/2016): Hip pain, bilateral Encounters Date Type Department Care Team Description 11/19/2024 Telephone [facility] [address] [place] [address] Jay Brar MD 10/28/2024 12:45 PM CDT Ancillary Procedure [facility] [address], [place] [address] Biventricular ICD (implantable cardioverter-defibrilla tor) in place (Primary Dx); NICM (nonischemic cardiomyopathy) ([facility]) 10/26/2024 Results Follow-Up [facility] [address] [place] [address] Jay Brar MD US Abdominal Aortic Aneurysm Screening 10/22/2024 3:53 PM CDT - 10/22/2024 11:59 PM CDT Hospital Encounter [facility] [address] [place] [address] Family history of aortic aneurysm Discharge Disposition: Discharge to home or self care 09/30/2024 3:15 PM CDT Office Visit [facility] [address] [place] [address] Jay Brar MD Coronary artery disease involving peoria coronary artery of peoria heart without angina pectoris (Primary Dx); Heart failure with improved ejection fraction (HFimpEF) ([facility]); LBBB (left bundle branch block); Biventricular ICD (implantable cardioverter-defibrilla tor) in place; Benign hypertension; Mixed hyperlipidemia; PSVT (paroxysmal supraventricular tachycardia); Family history of aortic aneurysm 09/30/2024 Telephone [facility] [address] [place] [address] Jay Brar MD from Last 3 Months Immunizations Immunization Administration Dates Next Due Influenza, Quadrivalent, Spl it, Preservative Free, Intramuscular 08/19/2016 Pfizer SARS-CoV-2 Monovalent Vaccination (12+ Yrs) PURPLE 11/27/2020,11/06/2020 Surgical History Surgery Date Site/Laterality Comments HIP SURGERY JOINT REPLACEMENT Both hips total replacement CARDIAC DEFIBRILLATOR PLACEMENT 06/11/2021 - 06/10/2022 Medical History Medical History Date Comments History of calculus of gallbladder History of cholelithiasis Hypertension Hypertension Over weight Heart disease Heart Failure Dilated cardiomyopathy (HCC) 07/30/2020 Family History Medical History Relation Name Comments Heart attack Brother 2 Amando Muñoz Abdominal Aortic Aneurysm Father Ab dominal aortic aneurysm; Cause of : Abdominal aortic aneurysm Dementia Mother Other Sister 2 Alive and well; Relation Name Status Comments Brother 1 Alive Brother 2 Amando Muñoz Father (Age 90) Mother Alive Sister 1 Alive Sister 2 Social History Tobacco Use Types Packs/Day Years [...] on file Legal Sex Male 4:18 AM ETHICS INSTRUCTOR Gender Identity Male 10/18/2020 4:43 PM CDT Sexual Orientation Straight 10/18/2020 4: 43 PM CDT Obstetrics History Last Filed Vital Signs Vital Sign Reading Time Taken Comments Blood Pressure 104/60 09/30/2024 4:02 PM CDT Pulse 72 09/30/2024 4:02 PM CDT Temperature 36.9 C (98.5 F) 06/17/2024 3:23 PM ETHICS INSTRUCTOR Respiratory Rate 18 06/17/2024 3:23 PM ETHICS INSTRUCTOR Oxygen Saturation 97% 09/30/2024 4:02 PM CDT Inhaled Oxygen Concentration - - Weight 100.7 kg (222 lb) 09/30/2024 4:02 PM CDT Height 177.8 cm (5' 10) 09/30/2024 4:02 PM CDT Body Mass Index 31.85 09/30/2024 4:02 PM CDT Plan of Treatment Health Maintenance Due Date Last Done Comments Colon Cancer Screening-Colonoscopy 1960 Hepatitis C Screening 1960 DTaP/Tdap/Td Vaccine (1 - Tdap) 1971 Hepatitis B Screening 1978 Regular Well Visit/Exam 18-64 1978 Pneumococcal vaccine <65 (1 of 2 - PCV) 1979 Zoster Vaccine (1 of 2) 2010 Covid-19 Vaccine ( season) 2024, 11/06/2020 Influenza Vaccine (Season Ended) 2025 08/20/19 17 Depression Screening 06/17/2025 06/17/2024 Prostate Cancer Screening-PSA 01/09/2026 01/10/2024 Medical Devices Implanted Type [employer] Teacher Device Identifier Shelf Expiration Date Model / Serial / Lot Medtronic Inc [id number] Cardiac [place] Hf 2 Chamber Df4 Inline Cnctr Is4 - [id number] - [id number] Implanted:Qty: 1 on 03/28/2021 by Fareed Downs MD at [facility] ICD Med[employer] Inc [id number] 07/25/2022 DTP [id number] / [id number] / [id number] Medtronic Cardiac Rhythm Mgmt [id number] Sprint Quattro Secure S 55cm Df-4 Tripolar Screw Defibrillator - [id number] - [id number] Implanted:Qty: 1 on 03/28/2021 by Fareed Downs MD at [facility] Lead Med[employer]onic Inc [id number] 01/13/2023 [id number] / [id number] / [id number] Medtronic Inc [id number] Lead Attain Stability Quad Mri Surescan Lv 88mm - [id number] - [id number] Implanted:Qty: 1 on 03/28/2021 by Fareed Downs MD at [facility] Lead [employer]onic Inc [id number] 12/08/2022 [id number] / [id number] / [id number] Medtronic Inc Capsurefix Novus 6.2fr 2mm 52cm Bipolar Screw In Implantable Latex Free 5076-52 - [id number] - [id number] Implanted:Qty: 1 on 10/24/2021 at [facility] Lead [employer] Inc [id number] 08/11/2023 507 6-52 / [id number] / [id number] Bilateral Hip Replacements Hip Explanted Type [employer] Teacher Device Identifier Shelf Expiration Date Model / Serial / Lot Medtronic Cardiac Rhythm Mgmt 5076-45 Capsurefix Novus 6.2fr 2mm 45cm Bipolar Screw In Implantable - [id number] - [id number] Implanted:Qty: 1 on 03/28/2021 by Fareed Downs MD at [facility] Explanted:Qty: 1 on 10/24/2021 at [facility] Lead Med[employer]onic Inc [id number] 01/20/2023 507 6-45 / [id number] / [id number] Procedures Procedure Name Priority Date/Time Associated Diagnosis Comments DEVICE CHECK - REMOTE Routine 10/28/2024 9:34 AM CDT NICM (nonischemic cardiomyopathy) (HCC) ABDOMINAL AORTIC ANEURYSM SCREENING Schedule Routine, Read Routine (OP Routine) 10/22/2024 4:37 PM CDT Family history of aortic aneurysm POCT LIPID PANEL Routine 09/30/2024 4:03 PM CDT Coronary artery disease involving peoria coronary artery of peoria heart without angina pectoris Mixed hyperlipidemia from [...] ohms N/A Battery Status: 7.5 years to GENET, charge time 10.5 seconds. Episodes last 90 days/Comments: AF Coleman 0 %,longest duration 0. There were 4 [...] Vascular Surgery Guidelines: J Vasc Surgery 2008 Oct 50: s2-s49; updated Jun 2017 J Vasc Surgery 67:2-77 THIS IS AN ELECTRONICALLY VERIFIED FINAL REPORT 10/25/2024 7:21 AM - Electronically signed by Colton Gonzalez M.D. CH: LUCIA Report ID: [id number] Reading Location: [id number] Procedure Note Colton Gonzalez Jr., MD - [...] for Vascular Surgery Guidelines: J Vasc Surgery 2008Oct 50: s2-s49; updated Jun 2017 J Vasc Surgery 67:2-77 THIS IS AN ELECTRONICALLY VERIFIED FINAL REPORT 10/25/2024 7:21 AM - Electronically signed by Colton Gonzalez M.D. CH: LUCIA Report ID: [id number] Reading Location: [id number] Jay Brar MD IMG US PROCEDURES Final [...] Final Result from Last 3 Months Insurance [facility] Care Teams Pest Controller Assistant Relationship Specialty Start Date End Date Jenny Murphy NP [address] [facility] [address] [address] [place], [place] [id number] PCP - General Family Medicine 06/17/24
[2024-11-25 08:17] VITALS: BP 138/94; PULSE 72; RESP 18; TEMP 36.4; O2SAT 98; BMI 31.8
[2024-11-25] MEDS: LACTATED RINGERS 1,000 ML 150 ML IV CONT (08:35)
--- NOTE | 2024-11-25 08:46 | WPDANESEPPF ---
Anes - Initial Pre Proc Eval Procedure: Operation Date: 11/25/24 09:30 Proposed Procedures p Screening Colonoscopy - El King MD Date/Time: 11/25/24 08:46 Surgeon: El King MD Pre Op Diagnosis: screening colon Patient Data Age: 64 Gender: M Height: 1.78 m Weight: 100.6 kg Last Vital Signs Temp 36.4 C L 11/25/24 08:17 Pulse 72 11/25/24 08:17 Resp 18 11/25/24 08:17 BP 138/94 H 11/25/24 08:17 Pulse Ox 98 11/25/24 08:17 O2 Del Method Room Air 11/25/24 08:17 Allergies Allergy/AdvReac Type Severity Reaction Status Date / Time No Known Allergies Allergy Unknown Verified 11/25/24 08:24 Home Medications ?Medication ?Instructions ?Recorded ?Confirmed ?Type mqqopuqwfiis-jbzfxtqi-zjvhdr tablet 1 tablet PO DAILY 09/30/19 11/25/24 History aspirin 81 mg tablet,delayed 81 mg PO DAILY #30 tabs 07/16/20 11/25/24 Rx release atorvastatin 40 mg tablet 40 mg PO HS #30 tabs 07/16/20 11/25/24 Rx furosemide 20 mg tablet 20 mg PO DAILY 30 days #30 tabs 07/16/20 11/19/24 Rx metoprolol succinate 25 mg 25 mg PO DAILY #30 tabs 07/16/20 11/19/24 Rx tablet,extended release 24 hr (Toprol XL) sacubitril 97 mg-valsartan 103 mg 1 tablet PO BID 03/07/23 11/25/24 History tablet (Entresto) metoprolol succinate 50 mg 75 mg PO DAILY 11/19/24 11/25/24 History tablet,extended release 24 hr Patient hx anesthesia problems: none Family hx anesthesia problems: none Results Review: All pre-operative results and documents have been reviewed as part of the pre-operative evaluation. [facility] Past Medical History Medical History Left bundle branch block Cardiomyopathy BMI 36.0-36.9,adult Hypertension Surgical History Surgical History History of cardiac defibrillator placement History of total hip replacement Bilateral: Right 2017 left 2016 Family History Family History Father Heart disease Sibling Cerebrovascular accident Heart disease Social History Social History Smoking status: Never smoker Alcohol intake: current Drinks per week: 1 Alcohol use details: BEER Substance use: never Substance use type: does not use Lack of Transportation: No Lack of Food: Never True Current Housing: I Have Housing Concerned About Future Housing: No Difficulty Paying Gas/Electric Bills: No Difficulty Paying for Meds: No Currently Unemployed: No Education: High School Diploma/GED Difficulty w/ Childcare or Family Care: No Living arrangements: with family Additional living arrangements comments: , grandson, stepson Occupation/Education: occupation 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 Informed Consent: The patient's anesthetic plan and its attendant risks and benefits were discussed with the patient/family/POA. Questions were solicited and answers provided to the satisfaction of the patient/family/POA.
--- NOTE | 2024-11-25 08:55 | P.HP_ITS ---
H&P: HPI History of Present Illness Date/Time: 11/25/24 08:55 Chief Complaint: Screening colonoscopy Narrative: This is the patient's first colonoscopy. There are no GI symptoms and there is no family history of colorectal cancer. Review of Systems Review of Systems: All systems reviewed & are unremarkable except as noted in HPI and below PMFSH Past Medical History Medical History Left bundle branch block Cardiomyopathy BMI 36.0-36.9,adult Hypertension Surgical History Surgical History History of cardiac defibrillator placement History of total hip replacement Bilateral: Right 2017 left 2016 Family History Family History Father Heart disease Sibling Cerebrovascular accident Heart disease Social History Social History Smoking status: Never smoker Alcohol intake: current Drinks per week: 1 Alcohol use details: BEER Substance use: never Substance use type: does not use Lack of Transportation: No Lack of Food: Never True Current Housing: I Have Housing Concerned About Future Housing: No Difficulty Paying Gas/Electric Bills: No Difficulty Paying for Meds: No Currently Unemployed: No Education: High School Diploma/GED Difficulty w/ Childcare or Family Care: No Living arrangements: with family Additional living arrangements comments: , grandson, stepson Occupation/Education: occupation 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 Gender identity (if verbalized by the patient): Male Spiritual care concerns: No Meds Home Medications and Allergies Home Medications ?Medication ?Instructions ?Recorded ?Confirmed ?Type pcavltfzxlsh-tnouylea-yqrrjx tablet 1 tablet PO DAILY 09/30/19 11/25/24 History aspirin 81 mg tablet,delayed 81 mg PO DAILY #30 tabs 07/16/20 11/25/24 Rx release atorvastatin 40 mg tablet 40 mg PO HS #30 tabs 07/16/20 11/25/24 Rx furosemide 20 mg tablet 20 mg PO DAILY 30 days #30 tabs 07/16/20 11/19/24 Rx metoprolol succinate 25 mg 25 mg PO DAILY #30 tabs 07/16/20 11/19/24 Rx tablet,extended release 24 hr (Toprol XL) sacubitril 97 mg-valsartan 103 mg 1 tablet PO BID 03/07/23 11/25/24 History tablet (Entresto) metoprolol succinate 50 mg 75 mg PO DAILY 11/19/24 11/25/24 History tablet,extended release 24 hr Allergies Allergy/AdvReac Type Severity Reaction Status Date / Time No Known Allergies Allergy Unknown Verified 11/25/24 08:24 Vital Signs Vital Signs - 24 hr 11/25/24 08:17 Temperature 97.5 F L Pulse Rate 72 Respiratory Rate 18 Blood Pressure 138/94 H Pulse Oximetry 98 Oxygen Delivery Room Air Exam Const: General: cooperative and healthy appearing Resp: Effort & Inspection: normal respiratory effort and able to speak in complete sentences Auscultation: clear to auscultation bilaterally Cardio: Rate: regular rate Rhythm: regular rhythm GI: Inspection: normal to inspection GI Palp: No No hepatosplenomegaly present Auscultation: normal bowel sounds Rectal Exam: deferred Skin: General skin exam: normal color Psych: Appearance: grossly normal Mental Status: mental status grossly normal Assessment and Plan Assessment and plan (1) Encounter for screening colonoscopy: Code(s): Z12.11 - Encounter for screening for malignant neoplasm of colon Status: Acute Assessment and Plan: The patient is deemed a good candidate for the procedure. Consent signed. Will proceed.
--- NOTE | 2024-11-25 09:15 | S_PTH ---
PATIENT: Ricky Muñoz LOC: [facility] U#:[id number] AGE/SX: 64/M ROOM: RE11/25/[address]: El King MD : 1960 BED: DIS: 11/25/2024 SPEC #: [id number] RECD: 11/25/24 10:14 STATUS: MICHAELLE WILLIS #: [id number] MEGHNA: 11/25/24 09:[address]: El King DEPT: [facility] Surgical RECD BY: Yonatan Abreu ENTERED: 11/25/24 10:15 SP TYPE: Surgical OTHR DR: Jenny Murphy, GAS METER READER Tissues: A - Colon Polypectomy B - Colon Polypectomy C - Colon Polypectomy Procedures: Hematoxylin and Eosin Stain Gross and Microscopic Level 4
[2024-11-25 09:20] VITALS: BP 122/82; PULSE 60; RESP 14; O2SAT 97
[2024-11-25 09:30] VITALS: BP 132/89; PULSE 62; RESP 15; O2SAT 99
[2024-11-25 09:40] VITALS: BP 137/95; PULSE 62; RESP 16; O2SAT 100
== END 2024-11-25 09:56 | disposition home or self-care (01) ==
PROVIDERS: PCP Nurse Practitioner Family; Referring Provider Nurse Practitioner Family; Visit Provider Internal Medicine Gastroenterology
PROC: 0DJD8ZZ Inspection of Lower Intestinal Tract, Via Natural or Artificial Opening Endoscopic (ICD-10-PCS; CPT 45378; principal; 2024-11-25 09:30)
DX: Z12.11 Encounter for screening for malignant neoplasm of colon (principal); D12.2 Benign neoplasm of ascending colon; D12.3 Benign neoplasm of transverse colon; K63.5 Polyp of colon; I10 Essential (primary) hypertension; I44.7 Left bundle-branch block, unspecified; I42.9 Cardiomyopathy, unspecified; E66.9 Obesity, unspecified; Z68.31 Body mass index [BMI] 31.0-31.9, adult; Z79.82 Long term (current) use of aspirin; Z98.890 Other specified postprocedural states; Z95.810 Presence of automatic (implantable) cardiac defibrillator; Z82.49 Family history of ischemic heart disease and other diseases of the circulatory system
CPT/HCPCS: 45385; 88305; J2003; J2704; J7120